=== PATIENT | male | born 1995 | race Caucasian/White ===

== ENCOUNTER 2016-03-25 00:23 | Emergency (ER) | payer OTHER ==
[2016-03-25 00:30] VITALS: BP 113/86; PULSE 100; RESP 16; TEMP 98.1; O2SAT 95
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
== END 2016-03-25 02:45 | disposition home or self-care (01) ==
DX: S00.83XA Contusion of other part of head, initial encounter (principal); S29.9XXA Unspecified injury of thorax, initial encounter; S69.91XA Unspecified injury of right wrist, hand and finger(s), initial encounter; Y04.0XXA Assault by unarmed brawl or fight, initial encounter

== ENCOUNTER 2018-04-28 20:58 | Emergency (ER) | payer OTHER ==
[2018-04-28] MEDS ORDERED: ONDANSETRON DISINTEGRATING 4 MG TAB PO ONE (21:08)
[2018-04-28] MEDS ORDERED: FAMOTIDINE 20 MG/NACL 50 ML IV ONE (21:23)
[2018-04-28] MEDS ORDERED: ONDANSETRON 4 MG/2 ML VIAL IVP ONE (21:23)
[2018-04-28] MEDS ORDERED: NS 1,000 ML IV ONE ×2 (21:23)
[2018-04-28] MEDS ORDERED: HYDROmorphONE/DILAUDID 2 MG/ML INJ IVP ONE (22:02)
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
[2018-04-28] MEDS ORDERED: ONDANSETRON 4MG PREPACK#2 BTL TAKEHOME ONE (22:06)
[2018-04-28 23:04] VITALS: BP 132/88
== END 2018-04-28 23:02 | disposition home or self-care (01) ==
DX: K52.9 Noninfective gastroenteritis and colitis, unspecified (principal)
CPT/HCPCS: 96374; J1170; J2405